=== PATIENT | male | born 1995 | race Caucasian/White ===

== ENCOUNTER 2018-06-28 00:40 | Emergency (ER) | payer OTHER ==
[2018-06-28] MEDS ORDERED: NS 2,000 ML IV ONE (00:56)
--- NOTE | 2018-06-28 01:00 | EDPHY ---
H & P Stated Complaint: smoking MJ,synocpe shortly after standing,hit head,poss brief LOC,back pain Time Seen by Provider: 06/28/18 00:57 HPI/ROS: HPI CHIEF COMPLAINT: Syncope with head strike. HISTORY OF PRESENT ILLNESS: This patient is a 23-year-old male, presents emergency room by private vehicle after he had a syncopal episode. Patient states that he had 4 beers earlier in the evening, and then was smoking marijuana out of a Bong. He states he took a "medium hit out of the bong" and then got lightheaded. Patient states he got tunnel vision he stood up, then had a syncopal episode positive LOC with striking the left side of his head against the wall and then the ground. Denies bowel or bladder incontinence. Denies vomiting. Does complain of left-sided headache. He Reports to me does indicate drank that much water today. Patient denies any history of cardiovascular disease. Past Medical History: Denies medical history Past Surgical History: Denies surgical history Social History: Smokes marijuana tonight out of a Bong, multiple beers this evening. Denies other drugs Family History: Denies any premature cardiac in family or cardiovascular disease in his immediate family members. ROS REVIEW OF SYSTEMS: 10 Systems were reviewed and negative with the exception of the elements mentioned in the history of present illness. Exam Constitutional nontoxic, triage nursing summary reviewed, vital signs reviewed , awake/alert. Vital signs stable Eyes normal conjunctivae and sclera, EOMI, PERRLA. HENT head and neck atraumatic however mild tenderness palpation left posterior occiput, scalp swelling noted, no laceration, moist mucus membranes, no epistaxis, neck supple/ no meningismus, no raccoon eyes. Respiratory clear to auscultation bilaterally, normal breath sounds, no respiratory distress, no wheezing. Cardiovascular rate normal, regular rhythm, no murmur, no edema, distal pulses normal. Gastrointestinal soft, non-tender, no rebound, no guarding, normal bowel sounds, no distension, no pulsatile mass. Genitourinary no CVA tenderness. Musculoskeletal no midline vertebral tenderness, full range of motion, no calf swelling, no tenderness of extremities, no meningismus, good pulses, neurovascularly intact. Skin pink, warm, & dry, no rash, skin atraumatic. Neurologic awake, alert and oriented x 3, AAOx3, moves all 4 extremities equally, motor intact, sensory intact, CN II-XII intact, normal cerebellar, normal vision, normal speech. Psychiatric normal mood/affect. Heme/Lymph/Immune no lymphadenopathy. Differential Diagnosis: Includes but is not limited to in a particular order vasovagal syncope, orthostatic syncope, intracranial bleed, skull fracture, subdural,, alcohol intoxication, marijuana intoxication, cardiac arrhythmia, electrolyte disturbance, dehydration Medical Decision Making: Plan for this patient IV establishment IV fluid bolus 2 L normal saline, EKG, chest x-ray, given his head strike with positive LOC, additionally up against the wall and that hard floor surface with some scalp tenderness on the left side plan will be for CT scan head without contrast rule out intracranial bleed or skull fracture. Patient consents to treatment. Re-evaluation: EKG interpretation by me on record in [employer] system. Impression time of EKG 0054 sinus rhythm rate of 99, nonspecific T-wave abnormalities inferior leads to [address] scan head without contrast faxed to me by direct Radiology time 2:00 a.m. No acute intracranial abnormality. EKG interpretation by me on record in [email or web address] system. Impression time of EKG 3:50 a.m., sinus rhythm rate of 68, early re-steffen pattern. No signs of acute ischemia. No signs of cardiac arrhythmia no signs of WPW or Brugada. Unremarkable EKG. Troponin noted be normal. Electrolytes normal. Alcohol level is 22. Patient re-evaluated at 4:15 a.m. Resting comfortably no acute distress the patient feels much better would like to go home he states he feels much better after 2 L of fluid. I counseled him on alcohol use and marijuana. I do recommend refrain from smoking marijuana or drinking large amounts of alcohol. Recommend he drinks lots of fluids today and rest. Return emergency room if there is worsening symptoms includes syncope, chest pain, shortness of breath Patient is comfortable this plan. Source: Patient - Personal History Current Tetanus/Diphtheria Vaccine: Yes - Medical/Surgical History Hx Asthma: No Hx Chronic Respiratory Disease: No Hx Diabetes: No Hx Cardiac Disease: No Hx Renal Disease: No Hx Cirrhosis: No Hx Alcoholism: No Hx HIV/AIDS: No Hx Splenectomy or Spleen Trauma: No Other PMH: ADD, scoliosis, scoliosis correction sx - Social History Smoking Status: Never smoked Constitutional: Initial Vital Signs Temperature (C) 36.4 C 06/28/18 00:43 Heart Rate 99 06/28/18 00:43 Respiratory Rate 16 06/28/18 00:43 Blood Pressure 127/76 H 06/28/18 00:43 O2 Sat (%) 100 06/28/18 00:43 O2 Delivery Mode Room Air Allergies/Adverse Reactions: doxycycline Allergy (Verified 06/28/18 00:42) Home Medications: Medication Instructions Recorded Lisdexamfetamine Dimesylate 06/28/18 [VYVANSE] Medical Decision Making - Data Points Laboratory Results: Laboratory Results 06/28/18 01:10 06/28/18 01:10 06/28/18 06/28/18 06/28/18 01:24 01:10 01:10 WBC 8.50 10^3/uL 10^3/uL (3.80-9.50) RBC 4.58 10^6/uL 10^6/uL (4.40-6.38) Hgb 14.2 g/dL g/dL (13.7-17.5) Hct 42.4 % % (40.0-51.0) MCV 92.6 fL fL (81.5-99.8) MCH 31.0 pg pg (27.9-34.1) MCHC 33.5 g/dL g/dL (32.4-36.7) RDW 12.1 % % (11.5-15.2) Plt Count 320 10^3/uL 10^3/uL (150-400) MPV 10.2 fL fL (8.7-11.7) Neut % (Auto) 54.2 % % (39.3-74.2) Lymph % (Auto) 37.1 % % (15.0-45.0) [place] % (Auto) 7.2 % % (4.5-13.0) Eos % (Auto) 0.9 % % (0.6-7.6) Baso % (Auto) 0.4 % % (0.3-1.7) Nucleat RBC Rel Count 0.0 % % (0.0-0.2) Absolute Neuts (auto) 4.61 10^3/uL 10^3/uL (1.70-6.50) Absolute Lymphs (auto) 3.15 10^3/uL H 10^3/uL (1.00-3.00) Absolute Monos (auto) 0.61 10^3/uL 10^3/uL (0.30-0.80) Absolute Eos (auto) 0.08 10^3/uL 10^3/uL (0.03-0.40) Absolute Basos (auto) 0.03 10^3/uL 10^3/uL (0.02-0.10) Absolute Nucleated RBC 0.00 10^3/uL 10^3/uL (0-0.01) Immature Gran % 0.2 % % (0.0-1.1) Immature Gran # 0.02 10^3/uL 10^3/uL (0.00-0.10) Sodium 140 mEq/L mEq/L (135-145) Potassium 4.0 mEq/L mEq/L (3.5-5.2) Chloride 106 mEq/L mEq/L (97-110) Carbon Dioxide 24 mEq/l mEq/l (22-31) Anion Gap 10 mEq/L mEq/L (6-14) BUN 18 mg/dL mg/dL (7-23) Creatinine 0.9 mg/dL mg/dL (0.7-1.3) Estimated GFR > 60 Glucose 121 mg/dL H mg/dL (70-100) Calcium 9.3 mg/dL mg/dL (8.5-10.4) POC Troponin I 0.01 ng/mL ng/mL (0.00-0.08) Ethyl Alcohol 22 mg/dL H mg/dL (0-10) Medications Given: Discontinued Medications Sodium Chloride (Ns) 2,000 mls @ 0 mls/hr IV EDNOW ONE; Wide Open PRN Reason: Protocol Stop: 06/28/18 00:57 Last Admin: 06/28/18 01:07 Dose: 2,000 mls Point of Care Test Results: Chemistry 06/28/18 01:24 POC Troponin I 0.01 ng/mL ng/mL (0.00-0.08) Departure - Departure Disposition: Home, Routine, Self-Care Clinical Impression: Syncope, Marijuana abuse, Head injury Condition: Good Instructions: Syncope (ED), Alcohol Intoxication (ED), Cannabis Abuse (ED) Additional Instructions: 1. Be very careful how much alcohol you drink. 2. Stay well-hydrated drink lots of fluids. 3. Refrain from using or smoking marijuana. 4. Follow up with your primary care doctor. 5. Return to the emergency room if you have worsening symptoms. This includes passing out again. Referrals: [facility] [Other] - As per Instructions
[2018-06-28 01:23] LABS: PLATELET COUNT 320 10^3/uL (150-400)
[2018-06-28 03:42] VITALS: BP 127/62
--- NOTE | 2018-06-28 08:16 | CPEKG ---
Test Reason : OPEN Blood Pressure : / mmHG Vent. Rate : 068 BPM Atrial Rate : 069 BPM P-R Int : 175 ms QRS Dur : 089 ms QT Int : 412 ms P-R-T Axes : 025 087 065 degrees QTc Int : 439 ms Sinus rhythm Probable left ventricular hypertrophy ST elev, probable normal early repol pattern Confirmed by Anibal Werner ([id number]) on 06/28/2018 8:16:03 AM Referred By: Anibal Werner Confirmed By:Anibal Werner
--- NOTE | 2018-06-28 08:16 | CPEKG ---
Test Reason : OPEN Blood Pressure : / mmHG Vent. Rate : 099 BPM Atrial Rate : 097 BPM P-R Int : 156 ms QRS Dur : 094 ms QT Int : 340 ms P-R-T Axes : 055 082 -41 degrees QTc Int : 437 ms Sinus rhythm LVH by voltage Nonspecific T abnormalities, inferior leads Confirmed by Anibal Werner ([id number]) on 06/28/2018 8:16:04 AM Referred By: Anibal Werner Confirmed By:Anibal Werner
== END 2018-06-28 04:30 | disposition home or self-care (01) ==
DX: R55 Syncope and collapse (principal); S09.90XA Unspecified injury of head, initial encounter; E86.9 Volume depletion, unspecified; F12.10 Cannabis abuse, uncomplicated; W01.198A Fall on same level from slipping, tripping and stumbling with subsequent striking against other object, initial encounter; F90.9 Attention-deficit hyperactivity disorder, unspecified type
CPT/HCPCS: 80305; 84484-ER; G0480